=== PATIENT | male | born 1975 | race Two or more races ===

== ENCOUNTER → 2016-09-03 | Outpatient (CLI) | payer MEDICAID ==
--- NOTE | 2016-09-03 19:24 | CPEEG ---
[f rep st] ELECTROENCEPHALOGRAM DATE OF STUDY: HISTORY: The patient is 40 years old with a history of episodes of some shaking and memory impairmen t and some numbness on the left side. INDICATION: Evaluate for seizure and epileptiform activity. DESCRIPTION OF THE RECORD: This is a technically adequate study obtained following partial sleep dep rivation. Background consists of a 9 Hz, posterior dominant, symmetric alpha rhythm which attenuates on eye opening. Frontal central beta activity is present. There are no areas of focal slowing and no epileptiform discharges. Photic stimulation is performed and produces symmetric driving responses at some frequencies. Hyperventilation is performed with good effort and produces mild buildup. The patient becomes drowsy and falls into light sleep during the recording. INTERPRETATION: Normal awake and light sleep EEG recording. /[id number]/MODL
== END ==
LOC: FCPNEURO 10:13
PROVIDERS: ATTEND Psychiatry & Neurology Neurology
DX: R56.9 Unspecified convulsions (principal)